=== PATIENT | female | born 1955 | race Two or more races ===

== ENCOUNTER 2018-10-21 23:31 | Emergency (ER) | payer OTHER ==
[~2018-10-21] VITALS: Ht 162.6 cm; Wt 89.8 kg
[2018-10-21] MEDS ORDERED: AMLODIPINE BESY10 MG ORAL (23:39)
[2018-10-21 23:53] VITALS: BP 156/88
--- NOTE | 2018-10-21 23:53 | NUR ---
ED Nurse Note: patient presents with complaints of a fall in 10/08/18
[2018-10-22] MEDS ORDERED: Tylenol #3 tab (300mg/30mg) PO ONE
--- NOTE | 2018-10-22 00:36 | NUR ---
ED Nurse Note: information technology director at bedside.
--- NOTE | 2018-10-22 00:54 | NUR ---
ED Nurse Note: Patient going down for CT at this time.
--- NOTE | 2018-10-22 01:27 | NUR ---
ED Nurse Note: Patient resting comfortably with family member at bedside. Patient vital signs are stable.
[2018-10-22 01:28] VITALS: BP 148/71
[2018-10-22] MEDS ORDERED: ACETAMINOPHEN-1 EAC1 ORAL (01:53)
[2018-10-22 02:11] VITALS: BP 148/71
--- NOTE | 2018-10-22 02:11 | NUR ---
ED Nurse Note: PAtient cleared for discharge, no s/s of acute distress. patient is A&Ox4, ambulatory with steady gait. ID band removed. Patient verbalized understanding of discharge instruction Abad Mckenna translated in lithuanian. Patient departed with all belongings accompanied by her family member.
--- NOTE | 2018-10-22 02:29 | Emergency Room Report ---
History of Present Illness General Chief Complaint: Multiple Trauma/Fall Source: Patient, Family Member Present Illness HPI 63-year-old female presents ED for evaluation. Patient complaining of left shoulder and back pain status post fall 10 days ago. Mechanical trip and fall at home. Denies hitting head or LOC. States pain is persisting so she came to the ER. Complaining of back pain and left shoulder and wrist pain. Pain is throbbing, 8 out of 10, nonradiating. No other aggravating relieving factors. Denies any other associated symptoms Allergies: Coded Allergies: No Known Allergies (Unverified , 10/21/18) Patient History Past Medical History: HTN Past Surgical History: none Pertinent Family History: none Social History: Denies: smoking, alcohol use, drug use Now: No Immunizations: UTD Reviewed Nursing Documentation: PMH: Agreed; PSxH: Agreed Nursing Documentation-PMH Hx Hypertension: Yes Review of Systems All Other Systems: negative except mentioned in HPI Physical Exam Vital Signs Date Time Temp Pulse Resp B/P (MAP) Pulse Ox O2 Delivery O2 Flow Rate FiO2 10/21/18 23:34 97.9 64 14 96 Room Air 10/21/18 23:53 156/88 Sp02 EP Interpretation: reviewed, normal General Appearance: no apparent distress, alert, GCS 15, non-toxic Head: normocephalic, atraumatic Eyes: bilateral eye normal inspection, bilateral eye PERRL ENT: hearing grossly normal, normal pharynx, no angioedema, normal voice Neck: full range of motion, supple/symm/no masses Respiratory: chest non-tender, lungs clear, normal breath sounds, speaking full sentences Cardiovascular #1: regular rate, rhythm, no edema Cardiovascular #2: 2+ carotid (R), 2+ carotid (L), 2+ radial (R), 2+ radial (L) , 2+ dorsalis pedis (R), 2+ dorsalis pedis (L) Gastrointestinal: normal bowel sounds, non tender, soft, non-distended, no guarding, no rebound Rectal: deferred Genitourinary: no CVA tenderness, vertebral tenderness Musculoskeletal: back normal, gait/station normal, normal range of motion, decreased range of motion - L shoulder, tender - L wrist Neurologic: alert, oriented x3, responsive, motor strength/tone normal, sensory intact, speech normal Psychiatric: judgement/insight normal, memory normal, mood/affect normal, no suicidal/homicidal ideation Reflexes: 3+ bicep (R), 3+ bicep (L), 3+ tricep (R), 3+ tricep (L), 3+ knee (R) , 3+ knee (L) Skin: normal color, no rash, warm/dry, well hydrated Lymphatic: no adenopathy Procedures Splinting Splinting : Consent: Verbal Pre-Made Type: shoulder sling Pre-Proc Neuro Vasc Exam: normal Post-Proc Neuro Vasc Exam: normal Patient Tolerated: Well Complications: None Medical Decision Making Diagnostic Impression: Primary Impression: Shoulder injury Qualified Codes: S49.92XA - Unspecified injury of left shoulder and upper arm , initial encounter Additional Impression: Multiple injuries due to trauma ER Course Hospital Course 63 yo F presents with back pain, L shoulder and wrist pain s/p fall Differential diagnoses include: Fracture, dislocation, sprain, contusion Clinical course Patient placed on stretcher. After initial history and physical, I ordered pain medications and CT L spine and L shoulder/wrist xray CT L spine no acute process X-ray left wrist unremarkable X-ray left shoulder shows high riding humeral head. Possible rotator cuff injury Patient does have pain with abduction. No signs of fracture or dislocation. Discussed findings with patient. Placed in shoulder sling. Safe for discharge with close outpatient follow-up. We'll provide ortho referrals Diagnosis - shoulder injury, multiple injuries due to trauma Stable and discharged to home with prescription for tylenol #3. apply ice, keep elevated. weight bear as tolerated. Followup with PMD/ortho. Return to ED if symptoms recur or worsen Other X-Ray Diagnostic Results Other X-Ray Diagnostic Results #1: X-Ray ordered: L wrist # of Views/Limited Vs Complete: 3 View Indication: Pain EP Interpretation: Yes Interpretation: no dislocation, no soft tissue swelling, no fractures Impression: No acute disease Electronically Signed by: Electronically signed by Mark Delgado MD Other X-Ray Diagnostic Results #2: X-Ray ordered: L shoulder # of Views/Limited Vs Complete: 3 View Indication: Pain EP Interpretation: Yes Interpretation: no dislocation, no soft tissue swelling, no fractures, other - high riding humeral head Impression: Other - rotator cuff arthropathy Electronically Signed by: Electronically signed by Mark Delgado MD CT/MRI/US Diagnostic Results CT/MRI/US Diagnostic Results : Imaging Test Ordered: CT L spine Impression no acute process Last Vital Signs Date Time Temp Pulse Resp B/P (MAP) Pulse Ox O2 Delivery O2 Flow Rate FiO2 10/22/18 01:28 97.9 63 15 148/71 98 Room Air Status: improved Disposition: HOME, SELF-CARE Condition: Stable Scripts Acetaminophen With Codeine (T#3) (TYLENOL #3 TAB*) Y Tab 1 TAB ORAL Q8H PRN for For Pain for 3 Days, TAB Prov: Mark Delgado MD 10/22/18 [facility] Open 24 hour /7 days a week by Appointment Only [address] [facility] [address] Patient Instructions: Rotator Cuff Injury Mark Delgado MD October 22, 2018 02:29
--- NOTE | 2018-10-22 10:27 | Diagnostic Imaging Report ---
Indication: Back pain Technique: Continuous helical transaxial imaging of the lumbar spine was obtained. No IV contrast was administered. Coronal 2-D reformats were also obtained. Study obtained in a Siemens sensation [address] Total Dose length Product (DLP): 473.[address] Dose Index Volume (CTDIvol): 13.18 mGy Comparison: None Findings: There is no evidence of an acute fracture or malalignment. There is vacuum phenomena and mild narrowing of L5-S1 disc. Mild hypertrophy of the lumbar facets noted at this level and suggestion of mild foraminal stenosis. Height and configuration of the vertebral bodies and intervertebral discs are within normal limits. The facets are unremarkable. There is no soft tissue swelling. Impression: Negative lumbar spine for acute injury. Degenerative changes at L5-S1. [facility] has communicated the preliminary results to the Emergency Department. Their findings are largely concordant with this report. The CT scanner at [facility] is accredited by the [employer] and the scans are performed using dose optimization techniques as appropriate to a performed exam including Automatic Exposure control.
--- NOTE | 2018-10-22 11:04 | Diagnostic Imaging Report ---
Indication: left shoulder pain Findings: 3 views of the left shoulder were obtained. Alignment of the left shoulder is normal. No acute fracture is identified. The study is technically suboptimal. Mild arthrosis of the AC joint noted. Soft tissues are unremarkable. Impression: No obvious acute injury
--- NOTE | 2018-10-22 11:04 | Diagnostic Imaging Report ---
Indication: Left wrist pain Findings: 3 views of the left wrist were obtained. No acute fractures, malalignment, erosions or periostitis are identified. Mild soft tissue swelling noted. Impression: No acute findings.
== END 2018-10-22 02:11 | disposition home or self-care (01) ==
LOC: EMR 23:55
DX: S49.92XA Unspecified injury of left shoulder and upper arm, initial encounter (principal); I10 Essential (primary) hypertension; M25.532 Pain in left wrist; M54.9 Dorsalgia, unspecified; W01.0XXA Fall on same level from slipping, tripping and stumbling without subsequent striking against object, initial encounter; Y92.009 Unspecified place in unspecified non-institutional (private) residence as the place of occurrence of the external cause
CPT/HCPCS: 29105; 72131; 99284

== ENCOUNTER 2019-04-14 20:59 | Emergency (ER) | payer OTHER ==
[~2019-04-14] VITALS: Ht 157.5 cm; Wt 57.2 kg
[~2019-04-14 20:59] MED LIST: ACETAMINOPHEN-1 EAC1 ORAL; AMLODIPINE BESY10 MG ORAL
[2019-04-14 21:15] VITALS: BP 163/72
--- NOTE | 2019-04-14 21:15 | NUR ---
ED Nurse Note: Patient walked in to ER c/o redness of right eye. States that has burning sensations in her head since yesterday. AAO x4, VSS at this time, skin is warm to touch.
--- NOTE | 2019-04-14 21:26 | Emergency Room Report ---
History of Present Illness General Chief Complaint: Eye Problems Source: Patient Present Illness HPI Disclaimer: Please note that this report is being documented using [employer] technology. This can lead to erroneous entry secondary to incorrect interpretation by the dictating instrument. HPI: 63-year-old female with a history of hypertension presents for evaluation of feeling unwell and redness of the right eye. Symptoms have been present for approximately 5 days. She notes a warm sensation over the occiput that spreads over the back of the neck and over the left shoulder with some stiffness in the left shoulder but does not affect range of motion. There was no injury. She feels fatigued generally but denies any chest pain, cough, nausea, vomiting, diarrhea, dysuria, hematuria or any other changes in her health. She notes some redness over the eye noticed today without purulence, no pain, no trauma, no changes in extraocular motion, vision and denies any recent eye infection. Does not wear contact lenses. Has not taken any medication for this warm sensation over the head. Sometimes she feels as if she gets very hot and might pass out but has not lost consciousness, struck her head or suffered any other injuries. PMH: Hypertension PSH: Denies Allergies: Denies Social Hx: Denies Allergies: Coded Allergies: No Known Allergies (Unverified , 10/21/18) Nursing Documentation-PM Past Medical History: No History, Except For Hx Hypertension: Yes Review of Systems All Other Systems: negative except mentioned in HPI Physical Exam Vital Signs Date Time Temp Pulse Resp B/P (MAP) Pulse Ox O2 Delivery O2 Flow Rate FiO2 04/14/19 21:02 98.1 73 16 163/72 (102) 99 Room Air General: Awake and alert, no acute distress, afebrile HEENT: NC/AT. EOMI. PERRLA, 5 mm. Extraocular movements are full. Visual acuity: 20/20 OS, 20/20 OD, 20/20 OU. Fluorescein does not show any uptake over the cornea, no ulcers, no dendrites, no Donna's. Visual conte are grossly full. There is a sub-conjunctiva hemorrhage at the 5 o'clock position in the right eye and another small subconjunctival hemorrhage at the 3 o'clock position. No chemosis, no purulent drainage, no increased lacrimation. Cardiovascular: RRR. S1 and S2 normal. No murmur appreciated Resp: Normal work of breathing. No cough, wheezing or crackles appreciated Abdomen: Abdomen is soft, nondistended. Nontender Skin: Intact. No abrasions, laceration or rash over the exposed skin MSK: Normal tone and bulk. Moving all extremities. No obvious deformity. Neuro: Awake and alert. Mentating appropriately. Back/Spine: No midline tenderness in the cervical, thoracic or lumbosacral spine. There is some paraspinal tenderness on the left extending over the left trapezius without obvious deformity or trigger point. Medical Decision Making Diagnostic Impression: Primary Impression: Subconjunctival hemorrhage Additional Impression: UTI (urinary tract infection) ER Course 53-year-old female presents for evaluation of a right eye redness as well as a warm sensation extending over the head and neck for the past 5 days. She arrives with stable vital signs, appears well and has no history of recent injury or other major complaints at this time. She notes any other signs of systemic infection. Will check labs including a TSH to evaluate for metabolic or infectious causes of this warm sensation however she is well-appearing and likely can follow-up as an outpatient presuming normal lab work. We will also obtain EKG and troponin as this shoulder pain may be an atypical presentation though I have little suspicion for this clinically. Laboratory Tests Test 04/14/19 21:30 04/14/19 21:35 White Blood Count 8.5 K/UL (4.8-10.8) Red Blood Count 4.54 M/UL (4.20-5.40) Hemoglobin 14.4 G/DL (12.0-16.0) Hematocrit 40.0 % (37.0-47.0) Mean Corpuscular Volume 88 FL (80-99) Mean Corpuscular Hemoglobin 31.7 PG (27.0-31.0) H Mean Corpuscular Hemoglobin Concent 36.0 G/DL (32.0-36.0) Red Cell Distribution Width 9.6 % (11.6-14.8) L Platelet Count 223 K/UL (150-450) Mean Platelet Volume 6.3 FL (6.5-10.1) L Neutrophils (%) (Auto) 62.8 % (45.0-75.0) Lymphocytes (%) (Auto) 26.3 % (20.0-45.0) Monocytes (%) (Auto) 7.3 % (1.0-10.0) Eosinophils (%) (Auto) 2.6 % (0.0-3.0) Basophils (%) (Auto) 1.0 % (0.0-2.0) Sodium Level 145 MMOL/L (136-145) Potassium Level 3.5 MMOL/L (3.5-5.1) Chloride Level 106 MMOL/L (98-107) Carbon Dioxide Level 32 MMOL/L (21-32) Anion Gap 7 mmol/L (5-15) Blood Urea Nitrogen 21 mg/dL (7-18) H Creatinine 0.8 MG/DL (0.55-1.30) Estimate Glomerular Filtration Rate > 60 mL/min (>60) Glucose Level 150 MG/DL (74-106) H Calcium Level 8.5 MG/DL (8.5-10.1) Total Bilirubin 0.4 MG/DL (0.2-1.0) Aspartate Amino Transferase (AST) 25 U/L (15-37) Alanine Aminotransferase (ALT) 49 U/L (12-78) Alkaline Phosphatase 91 U/L (46-116) Troponin I 0.000 ng/mL (0.000-0.056) Total Protein 7.4 G/DL (6.4-8.2) Albumin 4.1 G/DL (3.4-5.0) Globulin 3.3 g/dL Albumin/Globulin Ratio 1.2 (1.0-2.7) Thyroid Stimulating Hormone (TSH) 1.324 uiU/mL (0.358-3.740) Urine Color Pale yellow Urine Appearance Clear Urine pH 6 (4.5-8.0) Urine Specific [place] 1.020 (1.005-1.035) Urine Protein Negative (NEGATIVE) Urine Glucose (UA) Negative (NEGATIVE) Urine Ketones Negative (NEGATIVE) Urine Blood 1+ (NEGATIVE) H Urine Nitrite Negative (NEGATIVE) Urine Bilirubin Negative (NEGATIVE) Urine Urobilinogen Normal MG/DL (0.0-1.0) Urine Leukocyte Esterase 2+ (NEGATIVE) H Urine RBC 2-4 /HPF (0 - 2) H Urine WBC 10-15 /HPF (0 - 2) H Urine Squamous Epithelial Cells Moderate /LPF (NONE/OCC) H Urine Bacteria Few /HPF (NONE) EKG Diagnostic Results EKG Time: 22:09 Rate: normal Rhythm: NSR ST Segments: no acute changes Other Impression Sinus rhythm, normal axis, normal intervals, no ST segment changes. Rhythm Strip Diag. Results Rhythm Strip Time: 22:09 EP Interpretation: yes Rate: 60s Rhythm: no PVC's, no ectopy CT/MRI/US Diagnostic Results CT/MRI/US Diagnostic Results : Impression [facility] Patient: OCTAVIO AVILES (Female) : 59 MR #: [id number] Status: ER Date: 04/14/19 23:02 Slices: 0 History: H/A Priors: Tech: Exam request generated by [email or web address] interface Exams: CT HEAD Without Contrast Contrast: Referring Phy: JOSE^DIANE Ordering Phy: Diane Armenta MD Final Report EXAM: CT Head Without Intravenous Contrast CLINICAL HISTORY: H/A TECHNIQUE: Axial computed tomography images of the head/brain without intravenous contrast. CTDI is 60 mGy and DLP is 1274 mGy-cm. One or more of the following dose reduction techniques were used: automated exposure control, adjustment of the mA and/or kV according to patient size, use of iterative reconstruction technique. COMPARISON: No relevant prior studies available. FINDINGS: Brain: Unremarkable. No hemorrhage. No significant white matter disease. No edema. Ventricles: Unremarkable. No ventriculomegaly. Bones/joints: Unremarkable. No acute fracture. Soft tissues: Unremarkable. Sinuses: Unremarkable as visualized. No acute sinusitis. Mastoid air cells: Unremarkable as visualized. No mastoid effusion. IMPRESSION: No evidence of acute intracranial abnormality. Radiologist: Geoff Barbosa MD Electronically Signed: 04/14/19 23:12 Phone: Study ready at 23:11 and initial results transmitted at 23:12 Reevaluation Time: 22:48 Last Vital Signs Date Time Temp Pulse Resp B/P (MAP) Pulse Ox O2 Delivery O2 Flow Rate FiO2 04/14/19 21:02 98.1 73 16 163/72 (102) 99 Room Air Reevaluation Impression Labs have returned largely within normal limits, EKG is nonischemic, troponin is negative. The patient does appear to have a urinary tract infection which we will treat with antibiotics. This may be the cause of her warm sensation over the head and feelings of lightheadedness over the past few days though the patient is very worried that she may have an intracranial tumor as her mother of one. She is very concerned as is her son who is now present. She does not note any changes in vision, mentation or recurrent headaches but does note this near syncopal sensation and some unsteadiness over the past few weeks. Will obtain a noncontrast CT scan of the head though if unremarkable the patient may be discharged with outpatient follow-up. 2320: CT of the head is unremarkable. The patient will be discharged on Keflex for 1 week for treatment of urinary tract infection. She will follow-up with her PMD and return to the emergency department any new or worsening symptoms. I discussed these results and treatment plan with the patient and her son who is present and they understand and agree with this treatment plan Disposition: HOME, SELF-CARE Condition: Stable Scripts Cephalexin* (KEFLEX*) 500 Mg Capsule 500 MG ORAL EVERY 12 HOURS for 7 Days, #14 CAP 0 Refills Prov: Diane Armenta MD 04/14/19 Diane Armenta MD Apr 14, 2019 21:26
[2019-04-14] MEDS ORDERED: Fluorescein Strips LEFT EYE ONE (21:30)
[2019-04-14] MEDS ORDERED: Acetaminophen 500mg (ES) tab ORAL ONE (21:45)
[2019-04-14 22:03] LABS: ANION GAP 7 mmol/L (5-15); BLOOD UREA NITROGEN 21 mg/dL (7-18); CALCIUM 8.5 MG/DL (8.5-10.1); CARBON DIOXIDE 32 MMOL/L (21-32); CHLORIDE 106 MMOL/L (98-107); CREATININE 0.8 MG/DL (0.55-1.30); POTASSIUM 3.5 MMOL/L (3.5-5.1); SODIUM 145 MMOL/L (136-145)
[2019-04-14 22:10] LABS: EOSINOPHILS % (AUTO) 2.6 % (0.0-3.0); HEMOGLOBIN 14.4 G/DL (12.0-16.0); LYMPHOCYTES % (AUTO) 26.3 % (20.0-45.0); MEAN CORPUSCULAR VOLUME 88 FL (80-99); MONOCYTES % (AUTO) 7.3 % (1.0-10.0); NEUTROPHILS % (AUTO) 62.8 % (45.0-75.0); PLATELET COUNT 223 K/UL (150-450); RED BLOOD COUNT 4.54 M/UL (4.20-5.40); RED CELL DISTRIBUTION WIDTH 9.6 % (11.6-14.8); WHITE BLOOD COUNT 8.5 K/UL (4.8-10.8)
[2019-04-14 22:14] LABS: APPEARANCE,URINE CLEAR; BILIRUBIN, URINE NEGATIVE (NEGATIVE); COLOR,URINE PALE YELLOW; GLUCOSE, URINE (UA) NEGATIVE (NEGATIVE); KETONES,URINE NEGATIVE (NEGATIVE); LEUKOCYTE ESTERASE ,URINE 2+ (NEGATIVE); NITRITE,URINE NEGATIVE (NEGATIVE); PH,URINE 6 (4.5-8.0); PROTEIN,URINE NEGATIVE (NEGATIVE); UROBILINOGEN,URINE NORMAL MG/DL (0.0-1.0)
[2019-04-14 22:17] LABS: ALANINE AMINOTRANSFERASE 49 U/L (12-78); ALBUMIN 4.1 G/DL (3.4-5.0); ALBUMIN/GLOBULIN RATIO 1.2 (1.0-2.7); ALKALINE PHOSPHATASE 91 U/L (46-116); ASPARTATE AMINO TRANSFERASE 25 U/L (15-37); BILIRUBIN,TOTAL 0.4 MG/DL (0.2-1.0)
[2019-04-14] MEDS ORDERED: CEPHALEXIN500 MG ORAL (23:18)
[2019-04-14 23:23] VITALS: BP 163/72
--- NOTE | 2019-04-14 23:41 | NUR ---
ED Nurse Note: Pt cleared by health care Provider for discharge. DC instructions/prescription was given and explained to pt and verbalized understanding of teachings. All medical deviecs such as ID band removed. Pt is AAO x4, ambulatory and left with all personal belongings.
--- NOTE | 2019-04-15 15:19 | Cardiology Report ---
APPROVED REPORT EKG Measurement Heart [id number] DC [id number] Normal sinus rhythm Possible Left atrial enlargement Incomplete right bundle branch block Nonspecific ST abnormality Abnormal ECG
== END 2019-04-14 23:23 | disposition home or self-care (01) ==
LOC: EMR 21:30
DX: H11.31 Conjunctival hemorrhage, right eye (principal); N39.0 Urinary tract infection, site not specified; I10 Essential (primary) hypertension
CPT/HCPCS: 36415; 70450; 80053; 81003; 84443; 84484; 85025; 87086; 93005; Z7502; 99284

== ENCOUNTER 2019-12-01 15:25 | Emergency (ER) | payer MEDICAID, OTHER ==
[~2019-12-01] VITALS: Ht 160 cm; Wt 58.1 kg
[~2019-12-01 15:25] MED LIST changes: +CEPHALEXIN500 MG ORAL
[2019-12-01 15:39] VITALS: BP 140/80
--- NOTE | 2019-12-01 15:39 | NUR ---
ED Nurse Note: PT walked in to ED for C/O pain to right sumner, left shoulder and chest area after a fall that occure on 11/22/19.
--- NOTE | 2019-12-01 15:54 | Emergency Room Report ---
History of Present Illness General Chief Complaint: Pain Source: Patient, Medical Record Present Illness HPI Patient fell off of a ladder a week ago. Her leg was caught in 1 of the rungs and it caused a break in the skin. There is more swelling but she is elevated to the foot. She presents because she has calf pain at this time is radiating somewhat to the upper leg. There is been bruising there also. Initially when she fell she hit her left chest and twisted her left shoulder. She denies loss of consciousness. She reports the pain 01/14. She is taking Naprosyn and it is helped a slight amount. Her tetanus is up-to-date. She denies fevers or chills. History of hypertension and high cholesterol. In 2019 she injured the left shoulder. X-rays at that time were normal. Allergies: Coded Allergies: No Known Allergies (Unverified , 10/21/18) COVID-19 Screening Contact w/high risk pt: No Recent Travel to affected area: No Experienced COVID-19 symptoms?: No COVID-19 Testing performed PIPING MANAGER: No Patient History Past Medical History: see triage record, old chart reviewed Social History: Denies: smoking, alcohol use, drug use Social History Narrative Reviewed Nursing Documentation: PMH: Agreed; PSxH: Agreed Nursing Documentation-PMH Past Medical History: No History, Except For Hx Hypertension: Yes Review of Systems Constitutional: Denies: fever Eye: Denies: blurred vision Respiratory: Denies: shortness of breath Gastrointestinal: Denies: abdominal pain Musculoskeletal: Reports: see HPI Skin: Reports: see HPI Neurological: Reports: see HPI Hematologic/Lymphatic: Reports: see HPI Physical Exam Vital Signs Date Time Temp Pulse Resp B/P (MAP) Pulse Ox O2 Delivery O2 Flow Rate FiO2 12/01/19 15:30 98.4 69 20 142/74 (96) 96 Room Air Sp02 EP Interpretation: reviewed, normal General Appearance: well appearing, no apparent distress, GCS 15 Head: normocephalic, atraumatic Eyes: bilateral eye normal inspection, bilateral eye PERRL, bilateral eye EOMI ENT: moist mucus membranes Neck: supple Respiratory: lungs clear, normal breath sounds Cardiovascular #1: regular rate, rhythm Cardiovascular #2: 2+ radial (R) Gastrointestinal: normal inspection, normal bowel sounds, non tender, no mass, non-distended Musculoskeletal: back normal, normal range of motion, calf tenderness - Right, gait/station normal, tender - Left shoulder with passive range of motion which is full without crepitance, swelling - Right calf Neurologic: alert, oriented x3, grossly normal Psychiatric: mood/affect normal Skin: Ecchymosis/Bruising - Right calf and also ankle and left breast Medical Decision Making Diagnostic Impression: Primary Impression: Fall Qualified Codes: W19.XXXA - Unspecified fall, initial encounter Additional Impressions: Laceration Cellulitis Qualified Codes: L03.115 - Cellulitis of right lower limb ER Course Patient presents with increased calf pain after fall. She also injured her left chest and left shoulder. Differential includes cellulitis, DVT, posttraumatic pain amongst others. Venous duplex is ordered. Based on her exam other imaging of her chest and shoulder are not indicated at this time. The infection appears to be localized in the anterior tibial area and bacitracin will be applied. Patient was given Motrin. Venous duplex negative for DVT. Patient improved with treatment. Patient given a sling for her left arm. Position excellent and improvement in symptoms. Distal neurovascular checked by me and normal. Discussed treatment plan with patient. Patient stable for outpatient observation and treatment. CT/MRI/US Diagnostic Results CT/MRI/US Diagnostic Results : Imaging Test Ordered: duplex Impression No DVT Last Vital Signs Date Time Temp Pulse Resp B/P (MAP) Pulse Ox O2 Delivery O2 Flow Rate FiO2 12/01/19 17:46 98.0 75 16 144/84 98 Room Air Status: improved Disposition: HOME, SELF-CARE Condition: Improved Scripts Ibuprofen* (MOTRIN*) 600 Mg Tablet 600 MG ORAL Q8H PRN for FOR PAIN, #20 TAB 0 Refills Prov: Abdoul Knight MD 12/01/19 Bacitracin (Bacitracin) 28.4 Gm Oint...g. 1 APPLIC TOPIC BID, #15 GM Prov: Abdoul Knight MD 12/01/19 Referrals: Gary TROTTER,REFERRING (PCP) Abdoul Knight MD Dec 01, 2019 15:54
--- NOTE | 2019-12-01 15:55 | NUR ---
ED Nurse Note: ultrasound being performed at bedside.
[2019-12-01] MEDS ORDERED: Bacitracin Oint UD TOPIC ONE (16:00)
[2019-12-01] MEDS ORDERED: BACITRACIN15 GM TOPIC (17:36)
[2019-12-01] MEDS ORDERED: IBUPROFEN600 M1 ORAL (17:36)
[2019-12-01 17:46] VITALS: BP 144/84
--- NOTE | 2019-12-01 17:46 | NUR ---
ER DISCHARGE NOTE: Patient is cleared to be discharged per ERMD, pt is aox4, on room air, with stable vital signs. pt was given dc and prescription instructions, pt was able to verbalize understanding, pt id band removed without complications. pt is able to ambulate with steady gait. pt took all belongings.
== END 2019-12-01 17:46 | disposition home or self-care (01) ==
LOC: EMR 15:44
DX: L03.115 Cellulitis of right lower limb (principal); S80.11XA Contusion of right lower leg, initial encounter; S90.01XA Contusion of right ankle, initial encounter; S20.02XA Contusion of left breast, initial encounter; T14.8XXA Other injury of unspecified body region, initial encounter; I10 Essential (primary) hypertension; W11.XXXA Fall on and from ladder, initial encounter; Y92.9 Unspecified place or not applicable; E78.00 Pure hypercholesterolemia, unspecified; S49.92XA Unspecified injury of left shoulder and upper arm, initial encounter
CPT/HCPCS: 93971; Z7502; 99284